=== PATIENT | male | born 1960 | race Caucasian/White ===

== ENCOUNTER 2018-10-13 15:03 | Inpatient (IN) | payer OTHER ==
[~2018-10-13] VITALS: Ht 170.2 cm; Wt 83.9 kg
[2018-10-13 15:37] VITALS: BP 140/95
[2018-10-13 16:43] LABS: ABSOLUTE NEUTROPHILS 6.9 thou/uL (1.4-8.2); BASOPHILS 0.9 % (0.0-2.0); EOSINOPHILS 1.5 % (0.0-3.0); HEMATOCRIT 47.1 % (42.0-52.0); HEMOGLOBIN 15.9 gm/dL (14.0-18.0); LYMPHOCYTES 15.3 % (24.0-44.0); MCH 29.9 pg (26.0-34.0); MCHC 33.8 g/dL (28.0-37.0); MCV 88.3 fL (80.0-100.0); MONOCYTES 7.9 % (1.0-8.0); PLATELET COUNT 177 thou/uL (150-400); POLYS 74.4 % (36.0-66.0); RBC 5.33 mil/uL (4.50-6.00); RDW 14.4 % (10.5-14.5); WBC 9.3 thou/uL (4.0-11.0)
[2018-10-13 17:00] LABS: APTT 30.5 Seconds (24.5-32.8); PROTIME 9.8 Seconds (9.3-11.4)
[2018-10-13 17:02] LABS: ALBUMIN 4.1 g/dL (3.4-5.0); CALCIUM 9.4 mg/dL (8.5-10.1); POTASSIUM 4.1 mmol/L (3.5-5.1); TOTAL BILIRUBIN 0.5 mg/dL (<0.1-1.0); TOTAL PROTEIN 7.9 g/dL (6.4-8.2)
[2018-10-13 17:27] LABS: CHOLESTEROL 139 mg/dL (<200); HDL CHOLESTEROL 44 mg/dL (>40); LDL CHOLESTEROL 72 mg/dL (<100); TC:HDL 3.2 Ratio (Not establshd); TRIGLYCERIDE 117 mg/dL (<150); VLDL 23 mg/dL (<40)
[2018-10-13 17:28] LABS: SERUM ASSESSMENT Clear
--- NOTE | 2018-10-13 17:32 | NUR ---
SUMMARY: PATIENT DIRECT ADMIT FROM DR. LYNCH'S OFFICE TO 355 SHORTLY. VITALS STABLE. PATIENT ALERT AND ORIENTED AND DENIED PAIN. RIGHT FOOT COLD AND UNABLE TO DOPPLER PULSE-MDS AWARE. ADMISSION ASSESSMENT COMPLETED BUT I.R. RN CAME FOR PATIENT TO TAKE TO I.R. FOR ARTERIOGRAM BEFORE ADMISSION HISTORY WAS OBTAINED. SOME ORDERS NOT COMPLETED ( HEPARIN GTT, MRSA SWAB, AND UA NOT COLLECTED) DUE TO PATIENT LEAVING THE UNITS BEFORE COMPLETION. TRANSFER ORDERS TO CCU SO PATIENT WILL NOT BE RETURNING TO [facility]. BELONGINGS AND HOME MEDICATIONS SENT WITH PATIENT TO I.R.
--- NOTE | 2018-10-13 18:37 | NUR ---
REPORT CALLED TO BISHNU RICHARDSON IN CCU.
[2018-10-13 21:15] VITALS: BP 152/93
[2018-10-13 22:00] VITALS: BP 140/74
[2018-10-13 23:00] VITALS: BP 105/56
[2018-10-13 23:07] LABS: GLYCOHEMOGLOBIN (HGB A1C) 5.5 % (4.8-5.6)
[2018-10-14] VITALS (23 sets, daily range): BP systolic 87–126; BP diastolic 46–87
--- NOTE | 2018-10-14 00:02 | NUR ---
PATIENT ARRIVED TO THE UNIT AT APPROXIMATELY 2100 FROM TOOLS DEVELOPER. BEDSIDE REPORT WAS GIVEN BY BISHNU AGEE. PATIENT NOTED TO HAVE CARDENE INFUSING AT 5 MG/HR, INTEGRILIN MCG/KG/MIN, AND ATEPLASE WAS INITIATED BY BISHNU AGEE PER IR ORDERS. PATIENT HAS A LEFT FEMORAL ARTERIAL SHEATH. PATIENT NOTED TO HAVE A CYANOTIC RIGHT FOOT AND DOPPLER PULSE NOT PRESENT, MD (DR. REMY) AWARE. AT 2340, DR. REMY WAS CONTACTED D/T PATIENT HAVING INCREASING PAIN AFTER MORPHINE GIVEN, ABDOMINAL PAIN WITH NAUSEA, AND RIGHT FOOT BEING VERY COLD TO TOUCH AND PALE. RECEIVED ORDERS FOR ZOFRAN AND INCREASED DOSE OF MORPHINE.
[2018-10-14 03:21] LABS: URINE BILIRUBIN NEGATIVE (Negative); URINE BLOOD 2+ (Negative); URINE CLARITY CLEAR; URINE COLOR YELLOW; URINE GLUCOSE-RANDOM* NEGATIVE (Negative); URINE KETONES NEGATIVE (Negative); URINE LEUKOCYTES-REFLEX 3+ (Negative); URINE NITRITE-REFLEX NEGATIVE (Negative); URINE PROTEIN (DIPSTICK) NEGATIVE (Negative); URINE UROBILINOGEN 0.2 E.U./dl (0.2-1.0)
[2018-10-14 03:31] LABS: SQUAMOUS None Seen /LPF (0-3); WBC CLUMPS Moderate (None Seen)
[2018-10-14 03:32] LABS: BACTERIA-REFLEX 1-9 Few /HPF (None Seen); CASTS None Seen /LPF (None Seen); CRYSTALS None Seen /LPF (None Seen); URINE RBC 3-10 Few /HPF (0-2)
[2018-10-14 05:06] LABS: HEMATOCRIT 42.9 % (42.0-52.0); HEMOGLOBIN 14.6 gm/dL (14.0-18.0); MCH 29.8 pg (26.0-34.0); MCV 87.8 fL (80.0-100.0); RBC 4.89 mil/uL (4.50-6.00); WBC 10.1 thou/uL (4.0-11.0)
[2018-10-14 05:09] LABS: CALCIUM 8.4 mg/dL (8.5-10.1); CREATININE 0.9 mg/dL (0.7-1.3); POTASSIUM 4.6 mmol/L (3.5-5.1)
--- NOTE | 2018-10-14 11:11 | NUR ---
DISCHARGE NOTE: PT ALERT AND ORIENTED X4, ALL DISCHARGE PPWRK REVIEWED WITH PT AND DAUGHTER TAMAR AT BEDSIDE, NO QUESTIONS AT THIS TIME, INSTRUCTED PT THAT [facility] OFFICE WOULD CALL TO SCHEDULE FOLLOW UP IN 6WKS AND CT SCAN.
[2018-10-14 19:14] LABS: HEMATOCRIT 41.2 % (42.0-52.0); HEMOGLOBIN 14.1 gm/dL (14.0-18.0); MCH 29.9 pg (26.0-34.0); MCHC 34.1 g/dL (28.0-37.0); MCV 87.7 fL (80.0-100.0); RBC 4.7 mil/uL (4.50-6.00); WBC 9.4 thou/uL (4.0-11.0)
[2018-10-14 19:19] LABS: POTASSIUM 4.3 mmol/L (3.5-5.1)
--- NOTE | 2018-10-14 19:57 | NUR ---
1830 RECEIVED PT FROM OR, ALERT AND ORIENTED, CARDENE GTT AT 15MG/HR, NO PAIN AT THIS TIME, SHEATH REMOVED IN IR, NO GROIN LINES PRESENT ON PT RETURN. PREVENA WOUND VAN TO RIGHT GROIN C/D/I. PT SISTER CALLED TO UPDATE ON PROCEEDURE AND PT STATUS.
[2018-10-15] VITALS (18 sets, daily range): BP systolic 85–112; BP diastolic 54–74
[2018-10-15 06:23] LABS: HEMATOCRIT 37.8 % (42.0-52.0); HEMOGLOBIN 12.9 gm/dL (14.0-18.0); MCH 29.9 pg (26.0-34.0); MCHC 34.1 g/dL (28.0-37.0); MCV 87.5 fL (80.0-100.0); RBC 4.32 mil/uL (4.50-6.00); RDW 14.2 % (10.5-14.5); WBC 9.4 thou/uL (4.0-11.0)
[2018-10-15 06:37] LABS: ALBUMIN 2.6 g/dL (3.4-5.0); CALCIUM 7.3 mg/dL (8.5-10.1); CREATININE 0.9 mg/dL (0.7-1.3); PHOSPHORUS 2.8 mg/dL (2.5-4.9); POTASSIUM 3.8 mmol/L (3.5-5.1)
--- NOTE | 2018-10-15 07:46 | NUR ---
ASSUMED CARE @ 1900 10/14/18, PT ASSESSMENTS AND VSS COMPLETE PER ICU PROTOCOL. PT ALERT AND ORIENTED X 4, PT ABLE TO FOLLOW COMMANDS, HYDROCODONE GIVEN FOR PAIN PRN, DURING THE SHIFT. PT ON RA, SATS IN THE HIGH 90'S, PT SOUNDS CLEAR, NO SIGNS OF SOA. PT OFF CARDENE GTT, BP STABLE, PT SR ON THE MONITOR, PREVENA TO THE RIGHT GROIN POST-PROCEDURE . PT ON REGULAR DIET, PO INTAKE OK. BRICENO IN PLACE, GOP NOTED. PT HAD AN UNEVENTFUL NIGHT, PLAN OF CARE - CONT TO MONITOR.
[2018-10-15] MEDS ORDERED: CELEXA20 MG PO (10:25)
[2018-10-15] MEDS ORDERED: ADULT ASPIRIN R81 MG PO (10:26)
[2018-10-15] MEDS ORDERED: SPIRIVA INH (10:26)
[2018-10-15] MEDS ORDERED: ADVAIR HFA 230M12 GM INH (10:26)
[2018-10-15] MEDS ORDERED: CLOPIDOGREL75 MG PO (10:27)
[2018-10-15] MEDS ORDERED: LIPITOR10 MG PO (10:28)
[2018-10-15] MEDS ORDERED: NORVASC10 MG PO (10:28)
--- NOTE | 2018-10-15 14:48 | NUR ---
PT ALERT AND ORIENTED X4. GIVEN HYDROCODONE FOR PAIN. VSS. LEFT RADIAL A LINE DISCONTINUED. BRICENO D/C, VOIDING WELL FOLLOWING. GOOD PULSE IN RIGHT LE. LEG/FOOT WARM AND GOOD SENSATION. ORDER TO TRANSFER TO CCU. REPORT CALLED TO BISHNU HOSKINS.
--- NOTE | 2018-10-15 18:23 | EKG ---
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 AN : 1960 Requested By: Thad Arnold Order Number: [id number] MD: Yung Roe Measurements Intervals Murray Rate: 66 P: 16 SC: 161 QRS: -11 QRSD: 95 T: -3 QT: 413 QTc: 433 Interpretive Statements Sinus rhythm Inferior infarct, old Consider anterior infarct age indeterminate Nonspecific ST-T wave changes No previous ECG available for comparison Electronically Signed On 10-15-2018 18:23:29 CDT by Yung Roe [email or web address] ��������������������������������������������� <ELECTRONICALLY SIGNED> ���������������������������������������� By: Yung Roe MD ��������������������������������������������� 10/15/18 1823 1617 161 Yung Roe MD /EPI
--- NOTE | 2018-10-15 19:21 | NUR ---
PATIENT TRANSFERED FROM ICU AT 1509. PATIENT IS A&O X 4. PATIENT IS RESTING COMFORTABLY IN BED AND CONTINUOUSLY BEING REMINDED TO NOT CROSS HIS LEGS AT THE ANKLES. PATIENT HAS RIGHT AND LEFT GROIN SITES WHICH DO NOT HAVE EDEMA, BRUISING. ASSESSMENT COMPLETED. CONTINUE TO MONITOR AND FOLLOW POC.
[2018-10-16 00:03] VITALS: BP 129/72
--- NOTE | 2018-10-16 05:00 | NUR ---
ASSUMED PT CARE AT 1900 WITH NO SIGN OF DISTRESS NOTED. PT IS ALERT AND ORIENTED. NO SIGN OF DISTRESS NOTED IN PT. SCHEDULED MEDS ADMINISTERED TO PT. PT IS STABLE. DENIES ANY FURTHER NEEDS AT THIS TIME. PAIN MED ADMINSTERED TO PT.
[2018-10-16 07:25] VITALS: BP 138/85
[2018-10-16] MEDS ORDERED: CEFUROXIME250 MG PO (09:30)
[2018-10-16] MEDS ORDERED: NICOTINE TRANSD21 M1 TRANSDERM (09:32)
[2018-10-16] MEDS ORDERED: ASPIRIN325 PO (09:32)
[2018-10-16] MEDS ORDERED: COREG6.25 MG PO (09:32)
[2018-10-16 10:47] VITALS: BP 138/85
[2018-10-16 11:25] VITALS: BP 134/80
--- NOTE | 2018-10-16 11:53 | NUR ---
PT CARE ASSUMED APPROX 0700. PT ALERT AND ORIENTED X4. DENIES SOA. REPORTED 4/10 PAIN TO GROIN. PAIN MANAGED WITH HYDRCODONE. UP WITH STEADY GAIT. VSS. RIGHT GROIN INCISIONAL VAC INTACT. DR LYNCH ORDERED TO LEAVE IN PLACE. LEFT GROIN DSG C/D/I. RLE WARM, DRY AND 2+ PEDAL PULSE. PT DENIES QUESTIONS OR CONCERNS REGARDING DISCHARGE PAPERWORK, SCRIPTS, NEW MEDS, VAC, F/U APPTS, DIET, ACTIVITY OR POST HOSPITAL CARE. S/S OF CVA THOROUGHLY REVIEWED WITH PT. SMOKING CESSATION REVIEWED WELL. IVs OUT, TELE OFF. PT ESCORTED OUT TO PERSONAL VEHICLE BY NURSING STAFF.
--- NOTE | 2018-10-17 11:26 | O ---
[facility] [place] [address] OPERATIVE REPORT Name: KWAKU DE LA CRUZ Room #: 206-P [facility] IN M.R.#: [id number] Admission: 10/13/18 ������������������ Attend Phys: Jerod Al MD Discharge: 10/16/18 ������������������ Date of : 60 Report #: [id number] THIS REPORT FOR: //name// CC: Jerod Samano DATE OF SERVICE: 10/14/2018 PREOPERATIVE DIAGNOSIS: Right femoral artery stenosis. POSTOPERATIVE DIAGNOSIS: Right femoral artery stenosis. OPERATION: Right femoral endarterectomy. SURGEON: Thad Arnold MD BOAT CANVAS INSTALLER: STEPHEN Heath. ANESTHESIA: General. INDICATIONS: The patient is a 57-year-old who was seen for Dr. Henley in the office. The patient has a history of tight proximal right superficial femoral artery stenosis that also involves the profunda femoris artery. The patient developed an acute thrombosis. After being seen in the office, Dr. Henley was able to perform thrombolysis and the patient was brought to the operating room for definitive treatment of the femoral stenosis. FINDINGS AND TECHNIQUE: After general anesthesia was established, an incision was made in the right groin to expose the common, deep and superficial femoral arteries. A 10,000 units of heparin were given. The femoral vessels were occluded. The femoral arteriotomy was made. The endarterectomy was performed without creating a distal flap. Neointima was inspected and all loose debris was removed. We were able to remove the plaque at the proximal origin of the profunda artery as well. Tacking sutures were placed in all areas including the profunda femoris origin. When we were happy with the endarterectomy, the arteriotomy was closed with thin walled pericardial patch and running Prolene. Prior to finishing the closure, the femoral vessels were backbled and the artery was flushed with heparinized saline. Flow was reestablished. Protamine was given to reverse the heparin. When hemostasis was satisfactory, the wound was closed in layers and a [facility] [address] [place] [address] OPERATIVE REPORT Name: KWAKU DE LA CRUZ Room #: 206[facility] IN .R.#: [id number] Admission: 10/13/18 ������������������ Attend Phys: Jerod Al MD Discharge: 10/16/18 ������������������ Date of : 60 Report #: [id number] dressing was applied. The patient was taken to the recovery area in satisfactory condition. All counts were reported as correct. ��������������������������������������������� <ELECTRONICALLY SIGNED> ���������������������������������������� By: Thad Arnold MD ��������������������������������������������� 10/17/18 1126 1703 1939 Thad Arnold MD /nt
--- NOTE | 2018-10-17 17:06 | PATH ---
[facility] [address] [place] [address] PATHOLOGY RPT PROCEDURE Name: KWAKU GUPTA Room #: 206-P DIS IN M.R.#: [id number] ������������������ Admission: 10/13/18 ������������������ Date of : 60 Discharge: 10/16/18 Report #: [id number] Path Case #: [id number] [facility] Accession Number: [id number] . 01 Material submitted: . artery - RIGHT FEMORAL PLAQUE. Modifiers: right, femoral . 01 Clinical history: . Peripheral artery disease. . 02 Diagnosis: Right femoral plaque, femoral endarterectomy: - Fragments of vessel wall associated with myxoid degeneration and calcified sclerotic plaque material. (IUV:pit 10/17/2018) QTP/10/17/2018 . 02 Electronically signed: . Theodora Bobby MD, Pathologist NPI- [id number] . 01 Gross description: . Received in formalin labeled "Kwaku Gupta, right femoral plaque" is a tubular segment of quiroga-white calcified tissue measuring 2.6 cm in length and 1.2 cm in diameter. Approximately 80% of the specimen is comprised of calcifications. Glass Installer Technician sections are submitted in cassette A1 following decalcification. ([facility]; 10/16/2018) SYC/SYC . 02 Pathologist provided ICD-10: I70.201 . 02 CPT . 188301, 804859 Specimen Comment: A courtesy copy of this report has been sent to Specimen Comment: [phone], , . Specimen Comment: Report sent to ,DR ESPINOZA / DR SMILEY Performed at: [address], [place] [id number] MD Aram Scales MD Phone: [phone] Performed at: [address] [id number] MD Theodora Bobby MD Phone: [phone]
== END 2018-10-16 13:38 | disposition home or self-care (01) | DRG 253 ==
LOC: ICU 15:03 → 3W 15:03 → ICU 21:03 → 2N 10-15 15:08
PROVIDERS: Hospitalist; Nuclear Medicine Nuclear Cardiology; Physician Assistant; Surgery Vascular Surgery; ADMIT Hospitalist
DX: I70.201 Unspecified atherosclerosis of native arteries of extremities, right leg (principal); I74.3 Embolism and thrombosis of arteries of the lower extremities; N39.0 Urinary tract infection, site not specified; J44.9 Chronic obstructive pulmonary disease, unspecified; F17.200 Nicotine dependence, unspecified, uncomplicated; E78.5 Hyperlipidemia, unspecified; I10 Essential (primary) hypertension; I25.10 Atherosclerotic heart disease of native coronary artery without angina pectoris; I25.82 Chronic total occlusion of coronary artery; I71.4 Abdominal aortic aneurysm, without rupture; Z90.49 Acquired absence of other specified parts of digestive tract; Z98.84 Bariatric surgery status; Z83.3 Family history of diabetes mellitus; Z82.49 Family history of ischemic heart disease and other diseases of the circulatory system; Z71.6 Tobacco abuse counseling; Z79.82 Long term (current) use of aspirin; Z79.899 Other long term (current) drug therapy
CPT/HCPCS: 10078; 10081; 50101; 50386; 50455; 50953; 51751; 52279; 56524; 56526; 56528; 56531; 56534; 56668; 56760; 57092; 57093; 62110; 62900; 65020; 65040; 70005

== ENCOUNTER → 2018-11-03 | Outpatient (CLI) | payer OTHER ==
[~2018-11-03] MED LIST: ADULT ASPIRIN R81 MG PO; ADVAIR HFA 230M12 GM INH; ASPIRIN325 PO; CEFUROXIME250 MG PO; CELEXA20 MG PO; CLOPIDOGREL75 MG PO; COREG6.25 MG PO; LIPITOR10 MG PO; NICOTINE TRANSD21 M1 TRANSDERM; NORVASC10 MG PO; SPIRIVA INH
== END ==
LOC: HYPER 11-02 10:15
DX: T81.89XA Other complications of procedures, not elsewhere classified, initial encounter (principal); L97.112 Non-pressure chronic ulcer of right thigh with fat layer exposed; I10 Essential (primary) hypertension; I73.9 Peripheral vascular disease, unspecified; I25.10 Atherosclerotic heart disease of native coronary artery without angina pectoris; J44.9 Chronic obstructive pulmonary disease, unspecified; F41.9 Anxiety disorder, unspecified; F17.290 Nicotine dependence, other tobacco product, uncomplicated; Z79.01 Long term (current) use of anticoagulants; Z90.49 Acquired absence of other specified parts of digestive tract; Z79.82 Long term (current) use of aspirin; Z86.718 Personal history of other venous thrombosis and embolism; Y92.89 Other specified places as the place of occurrence of the external cause; Y83.8 Other surgical procedures as the cause of abnormal reaction of the patient, or of later complication, without mention of misadventure at the time of the procedure

== ENCOUNTER → 2020-02-12 | Outpatient (CLI) | payer OTHER | LOC: HYPER 09:52 | PROVIDERS: ATTEND Emergency Medicine Emergency Medical Services | DX: L97.122 Non-pressure chronic ulcer of left thigh with fat layer exposed (principal); I73.9 Peripheral vascular disease, unspecified; J44.9 Chronic obstructive pulmonary disease, unspecified; I10 Essential (primary) hypertension; I25.10 Atherosclerotic heart disease of native coronary artery without angina pectoris; F41.9 Anxiety disorder, unspecified; F17.210 Nicotine dependence, cigarettes, uncomplicated; Z90.49 Acquired absence of other specified parts of digestive tract; Z98.84 Bariatric surgery status; Z86.718 Personal history of other venous thrombosis and embolism; Z79.01 Long term (current) use of anticoagulants; Z79.82 Long term (current) use of aspirin ==

== ENCOUNTER → 2020-02-26 | Outpatient (CLI) | payer OTHER | LOC: HYPER 10:19 | PROVIDERS: ATTEND Emergency Medicine Emergency Medical Services | DX: L97.122 Non-pressure chronic ulcer of left thigh with fat layer exposed (principal); I73.9 Peripheral vascular disease, unspecified; J44.9 Chronic obstructive pulmonary disease, unspecified; I10 Essential (primary) hypertension; I25.10 Atherosclerotic heart disease of native coronary artery without angina pectoris; F41.9 Anxiety disorder, unspecified; F17.210 Nicotine dependence, cigarettes, uncomplicated; Z79.01 Long term (current) use of anticoagulants; Z86.718 Personal history of other venous thrombosis and embolism; Z98.84 Bariatric surgery status; Z79.82 Long term (current) use of aspirin; Z90.89 Acquired absence of other organs ==

== ENCOUNTER → 2020-03-18 | Outpatient (CLI) | payer OTHER | LOC: HYPER 09:25 | PROVIDERS: ATTEND Emergency Medicine Emergency Medical Services | DX: L97.122 Non-pressure chronic ulcer of left thigh with fat layer exposed (principal); J44.9 Chronic obstructive pulmonary disease, unspecified; I10 Essential (primary) hypertension; I25.10 Atherosclerotic heart disease of native coronary artery without angina pectoris; I73.89 Other specified peripheral vascular diseases; F41.9 Anxiety disorder, unspecified; F17.210 Nicotine dependence, cigarettes, uncomplicated; Z86.718 Personal history of other venous thrombosis and embolism; Z79.01 Long term (current) use of anticoagulants; Z79.82 Long term (current) use of aspirin; Z98.84 Bariatric surgery status ==

== ENCOUNTER → 2020-03-29 | Outpatient (CLI) | payer OTHER ==
[~2020-03-29] MED LIST changes: +ALEVE220 M1 PO; +ASPIRIN EC325 M1 PO; +CARVEDILOL25 MG PO; +CIPRO500 MG PO; +LOSARTAN POTAS100 MG PO
== END ==
LOC: LAB 09:48
PROVIDERS: ATTEND Surgery
DX: Z01.812 Encounter for preprocedural laboratory examination (principal); Z20.828 Contact with and (suspected) exposure to other viral communicable diseases

== ENCOUNTER 2020-04-03 06:04 | Day surgery (SDC) | payer OTHER ==
[~2020-04-03] VITALS: Ht 170.2 cm; Wt 88.9 kg
[2020-04-03 06:34] VITALS: BP 141/93
[2020-04-03] MEDS ORDERED: COLACE 100 MG100 MG PO (07:34)
[2020-04-03] MEDS ORDERED: HYDROCODON-ACE1 EAC7 PO (07:34)
[2020-04-03] MEDS ORDERED: MIRALAX17 GM PO (07:34)
--- NOTE | 2020-04-03 07:44 | EKG ---
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
[2020-04-03 08:32] VITALS: BP 141/93
--- NOTE | 2020-04-05 14:09 | PATH ---
[facility] [address] [place] [address] PATHOLOGY RPT PROCEDURE Name: KWAKU GUPTA Room #: DEP [facility] M.R.#: [id number] Admission: 04/03/20 Date of : 60 Discharge: 04/03/20 Report #: [id number] Path Case #: [id number] [facility] Accession Number: [id number] . 01 Material submitted: . thigh - LEFT THIGH WOUND TISSUE BIOPSY. Modifiers: left . 01 Clinical history: . DEBRIDEMENT, NON-HEALING LEFT THIGH . 02 Diagnosis: Skin, left thigh wound tissue, biopsy: - Ulceration along with fibrinoid degeneration as well as marked acute inflammation extending into deep subcutaneous tissue. - Squamous epithelium showing reactive changes. - Negative for malignancy. (IUV:pit 04/05/2020) QTP 04/05/2020 1304 Local . 02 Electronically signed: . Theodora Bobby MD, Pathologist NPI- [id number] . 01 Gross description: . The specimen is received in formalin, labeled "Kwaku Gupta, left thigh wound tissue" and consists of 2 segments of pink-quiroga to yellow quiroga skin and soft tissue measuring 1.3 x 0.5 x 0.3 cm and 0.6 x 0.5 x 0.3 cm which are entirely submitted in A1. ([facility]; 04/04/2020) SYU/SYU 04/04/2020 1157 Local . 02 Pathologist provided ICD-10: L98.499, L08.9 . 02 CPT . 964412 Specimen Comment: A courtesy copy of this report has been sent to [phone] Specimen Comment: [phone] Specimen Comment: Report sent to / DR SMILEY Performed at: 01 [place] [id number] [address] [id number] MD Aram Scales MD Phone: [phone] Performed at: [address] [id number] [address] [address] PATHOLOGY RPT PROCEDURE Name: KWAKU GUPTA Room #: DEP [facility] Donell#: [id number] Admission: 04/03/20 Date of : 60 Discharge: 04/03/20 Report #: [id number] Path Case #: [id number] MD Theodora Bobby MD Phone: [phone]
== END 2020-04-03 09:10 | disposition home or self-care (01) ==
LOC: OR 06:04 → TBA 06:05 → OR 09:09
PROVIDERS: ATTEND Surgery
DX: S71.102A Unspecified open wound, left thigh, initial encounter (principal); T81.89XA Other complications of procedures, not elsewhere classified, initial encounter; I10 Essential (primary) hypertension; E78.5 Hyperlipidemia, unspecified; J43.9 Emphysema, unspecified; I73.9 Peripheral vascular disease, unspecified; F17.210 Nicotine dependence, cigarettes, uncomplicated; Z98.890 Other specified postprocedural states; Z79.899 Other long term (current) drug therapy; Z90.49 Acquired absence of other specified parts of digestive tract; X58.XXXA Exposure to other specified factors, initial encounter; Y93.89 Activity, other specified; Y92.89 Other specified places as the place of occurrence of the external cause; Y99.8 Other external cause status
CPT/HCPCS: 50010; 50101; 50386; 50403; 57119; 57120; 62110; 62900; 70005

== ENCOUNTER → 2020-05-03 | Outpatient (CLI) | payer OTHER ==
[~2020-05-03] MED LIST changes: +COLACE 100 MG100 MG PO; +HYDROCODON-ACE1 EAC7 PO; +MIRALAX17 GM PO
== END ==
LOC: HYPER 07:59
PROVIDERS: ATTEND Emergency Medicine Emergency Medical Services
DX: L97.122 Non-pressure chronic ulcer of left thigh with fat layer exposed (principal); S71.102D Unspecified open wound, left thigh, subsequent encounter; I73.9 Peripheral vascular disease, unspecified; J44.9 Chronic obstructive pulmonary disease, unspecified; I10 Essential (primary) hypertension; I25.10 Atherosclerotic heart disease of native coronary artery without angina pectoris; F41.9 Anxiety disorder, unspecified; F17.210 Nicotine dependence, cigarettes, uncomplicated; Z86.718 Personal history of other venous thrombosis and embolism; Z79.01 Long term (current) use of anticoagulants; Z98.84 Bariatric surgery status; X58.XXXD Exposure to other specified factors, subsequent encounter

== ENCOUNTER → 2020-05-24 | Outpatient (CLI) | payer OTHER | LOC: HYPER 10:07 | PROVIDERS: ATTEND Emergency Medicine Emergency Medical Services | DX: T63.301D Toxic effect of unspecified spider venom, accidental (unintentional), subsequent encounter (principal); L97.122 Non-pressure chronic ulcer of left thigh with fat layer exposed; J44.9 Chronic obstructive pulmonary disease, unspecified; I10 Essential (primary) hypertension; I73.9 Peripheral vascular disease, unspecified; I25.10 Atherosclerotic heart disease of native coronary artery without angina pectoris; F41.9 Anxiety disorder, unspecified; F17.210 Nicotine dependence, cigarettes, uncomplicated; Z86.718 Personal history of other venous thrombosis and embolism; Z79.01 Long term (current) use of anticoagulants; Z79.82 Long term (current) use of aspirin; Z98.84 Bariatric surgery status ==

== ENCOUNTER → 2020-07-08 | Outpatient (CLI) | payer OTHER | LOC: HYPER 13:58 | PROVIDERS: ATTEND Emergency Medicine | DX: T63.301D Toxic effect of unspecified spider venom, accidental (unintentional), subsequent encounter (principal); L97.122 Non-pressure chronic ulcer of left thigh with fat layer exposed; I73.9 Peripheral vascular disease, unspecified; J44.9 Chronic obstructive pulmonary disease, unspecified; I10 Essential (primary) hypertension; I25.10 Atherosclerotic heart disease of native coronary artery without angina pectoris; F17.290 Nicotine dependence, other tobacco product, uncomplicated; Z86.718 Personal history of other venous thrombosis and embolism; Z79.01 Long term (current) use of anticoagulants; Z79.82 Long term (current) use of aspirin; Z98.84 Bariatric surgery status ==